=== PATIENT | male | born 1945 | race Caucasian/White ===

== ENCOUNTER 2020-05-27 17:53 | Inpatient (IN) | payer MEDICARE ==
[~2020-05-27] VITALS: Ht 172.7 cm; Wt 58.6 kg
[2020-05-27 18:18] VITALS: BP 131/92
[2020-05-27 18:38] LABS: BASO # 0.1 10*3/uL (0.0-0.1); EOS # 0.1 10*3/uL (0.0-0.4); EOS % 1.5 % (1.0-4.0); HEMATOCRIT 40.4 % (42.0-52.0); LYMPH # 1.3 10*3/uL (1.3-4.4); LYMPH % 18.3 % (27.0-41.0); MEAN CELL VOLUME 101.8 fl (80.0-94.0); MEAN CORPUSCULAR HGB 32.5 pg (27.0-31.0); MEAN CORPUSCULAR HGB CONC 31.9 g/dl (33.0-37.0); MEAN PLATELET VOLUME 9.3 fl (9.6-12.3); MONO # 0.7 10*3/uL (0.1-1.0); MONO % 10.3 % (3.0-9.0); NEUT # 4.9 10*3/uL (2.3-7.9); NEUT % 68.3 % (47.0-73.0); PLATELET COUNT AUTOMATED 318 10*3/uL (130-400); RED BLOOD COUNT 3.97 10*6/uL (4.50-5.90); RED CELL DISTRI WIDTH 15.2 % (0-14.5); WHITE BLOOD COUNT 7.1 10*3/uL (4.8-10.8)
[2020-05-27 18:53] LABS: ACT PARTIAL THROMBO TIME 27.9 SECONDS (20.0-32.1)
[2020-05-27 18:56] LABS: ALBUMIN 3.7 gm/dl (3.1-4.5); ALKALINE PHOSPHATASE 80 U/L (45-117); BUN 6 mg/dl (7-24); CHLORIDE 104 mmol/L (98-107); POTASSIUM 3.9 mmol/L (3.5-5.1); SGOT/AST 24 IU/L (3-35); SGPT/ALT 21 U/L (12-78); SODIUM 138 mmol/L (136-145); TOTAL PROTEIN 7.7 gm/dL (6.4-8.2); TROPONIN I < 0.015 ng/ml (<0.045)
--- NOTE | 2020-05-27 19:14 | NUR ---
PT IS RESTING IN BED. A+OX3. REQUESTED A WARM BLANKET.
[2020-05-27 20:36] VITALS: BP 130/89
--- NOTE | 2020-05-27 20:38 | NUR ---
PHOTO TAKEN OF LEFT 4TH TOE. PT DENIES ANY OTHER WOUNDS. FLAKY DRY SKIN NOTED TO LLE
[2020-05-27 21:10] VITALS: BP 138/89
--- NOTE | 2020-05-27 21:10 | NUR ---
Time: 2109 A 74 year old MALE admitted to 5E under services of RONALD BARCLAY DO. Pt. arrived via stretcher from ER. Chief complaint: INFECTION L FOOT/L 4TH TOE. RICK CRAWFORD
[2020-05-27] MEDS ORDERED: TUMS ULTRA STR470 MG PO (21:27)
[2020-05-27] MEDS ORDERED: ADVIL200 M1 PO (21:29)
--- NOTE | 2020-05-27 21:29 | NUR ---
MED REC UP TO DATE PER PT RECALL.
[2020-05-27] MEDS ORDERED: VANCOMYCIN HCL250 MG PO (21:30)
[2020-05-27] MEDS ORDERED: [UNRECOGNIZED DRUG - OTHER] INH (21:32)
--- NOTE | 2020-05-27 21:34 | NUR ---
NOTIFIED OF LACTIC ACID 2.2. NO NEW ORDERS REC'D.
[2020-05-27] MEDS ORDERED: PROVENTIL HFA6.7 GM INH (21:35)
--- NOTE | 2020-05-27 21:46 | NUR ---
(PODIATRY RESIDENT) NOTIFIED OF CONSULT. DISCUSSED XRAY RESULTS, PHYSICAL APPEARANCE OF FOOT/ANKLE, LABS, AND OTHER PERTINENT PT INFORMATION. NEW ORDERS RECEIVED FOR ESR, CRP, AND CT W/WO CONTRAST TO INCLUDE L FOOT, ANKLE, & LEG.
--- NOTE | 2020-05-27 22:14 | NUR ---
HARRY (PODIATRY RESIDENT) CALLED THIS RN REQUESTING PHOTOS OF XRAY OF L FOOT. RN UNABLE TO SEE IMAGE. SPOKE TO . WILL SEND IMAGES OF XRAY TO [facility].
--- NOTE | 2020-05-27 22:54 | NUR ---
PO NORCO GIVEN FOR C/O PAIN IN L FOOT RATED 10/10. WILL MONITOR EFFECTIVENESS.
--- NOTE | 2020-05-27 22:59 | NUR ---
SPOKE TO DR.BRITAIN ARCEO WHO IS THE RESIDENT NOW REMELTER FOR PODIATRY. DISCUSSED ORDERS RECEIVED FROM . PER , CT CAN BE DONE WITHOUT CONTRAST. NO NEED FOR WITH/WITHOUT CONTRAST. INSTRUCTED TO CALL WHEN REPORT COMES BACK. ALSO MADE AWARE OF QUESTIONABLE PEDAL PULSE IN L FOOT. DOPPLER USED AND FAINT PULSE HEARD AT TIMES, BUT INCONSISTENT. STILL STATES TO CALL HER WITH CT RESULTS AND WILL SEE IN AM UNLESS OTHERWISE NEEDED. 'S PHONE NUMBER [phone].
--- NOTE | 2020-05-27 23:04 | NUR ---
PT TAKEN OFF FLOOR FOR STAT CT LEG/FOOT WITHOUT CONTRAST.
--- NOTE | 2020-05-27 23:17 | NUR ---
PT RETURNED FROM CT
--- NOTE | 2020-05-27 23:23 | NUR ---
NOTIFIED OF MED REC UP TO DATE. AWARE OF PATIENT'S CLAIMS OF TAKING 3 500MG ADVIL Q3H FOR PAIN. PT STATES HE TOOK 21 PILLS TOTAL YESTERDAY.
--- NOTE | 2020-05-27 23:50 | NUR ---
ORAL GOMES HELPED PER PT.
[2020-05-28] VITALS: BP 108/67
--- NOTE | 2020-05-28 00:56 | NUR ---
STILL NO CT REPORT YET. WILL NOTIFY WHEN RESULTS ARE AVAILABLE.
--- NOTE | 2020-05-28 01:29 | NUR ---
NOTIFIED OF CT RESULTS. RN READ FULL IMPRESSION TO STATES SHE WAS ALREADY ON HER WAY IN AND WILL SEE THE PATIENT TONIGHT.
--- NOTE | 2020-05-28 02:15 | NUR ---
PT MEDICATED WITH PO TYLENOL PER PRN ORDER FOR C/O PAIN IN L FOOT RATED 8/10. WILL MONITOR. CALL LIGHT IN REACH.
--- NOTE | 2020-05-28 02:19 | NUR ---
ICE PACK PROVIDED PER REQUEST.
--- NOTE | 2020-05-28 03:07 | NUR ---
EARLIER TYLENOL HELPED SOME. PT STILL RATING L FOOT PAIN 12/11. PO NORCO GIVEN PER PRN ORDER. WILL MONITOR. CALL LIGHT IN REACH. BED ALARM INTACT.
--- NOTE | 2020-05-28 04:00 | NUR ---
EARLIER MEDICATIONS APPEAR EFFECTIVE. PT ASLEEP IN BED. RESPIRATIONS EASY. NO S/S OF DISTRESS NOTED. WILL MONITOR. CALL LIGHT IN REACH. BED ALARM INTACT.
--- NOTE | 2020-05-28 04:10 | NUR ---
HERE TO SEE PATIENT.
--- NOTE | 2020-05-28 04:40 | NUR ---
NOTIFIED OF PT'S C/O PAIN FOLLOWING DRESSING APPLICATION. DISCUSSED PAIN MEDICATION ALREADY GIVEN. ADDITIONAL PAIN MEDICATION WILL NEED TO BE ADDRESSED BY PRIMARY TEAM. PT REQUESTING ICE PACKS. AWARE PT HAS BEEN FREEZING HIS OWN WATER BOTTLES AND USING THEM ICE PACKS. SPOKE TO . AWARE OF TYLENOL GIVEN AROUND 2AM AND NORCO GIVEN AROUND 3AM. DISCUSSED C/O THROBBING PAIN FOLLOWING DRESSING CHANGE BY PODIATRY. NEW ORDER RECEIVED FOR 1MG MORPHINE X1 DOSE NOW.
--- NOTE | 2020-05-28 05:02 | NUR ---
MADE AWARE THAT VENOUS & ARTERIAL STUDIES MAY NOT BE DONE FOR A FEW DAYS DUE TO THE HOLIDAY. RN QUESTIONED IF WE SHOULD STILL PLAN FOR SURGERY ON 05/29 IF THESE ARE NOT DONE. PER , PLAN FOR SURGERY REGARDLESS.
--- NOTE | 2020-05-28 05:22 | NUR ---
PT STILL REFUSING TO TAKE OFF BLUE JEANS. PT REFUSED BATH 2 TIMES THROUGHOUT THE NIGHT. PT STATES EARLIER MORPHINE HELPING SOME. STATES HE JUST WANTS TO REST. WILL MONITOR. CALL LIGHT IN REACH. BED ALARM INTACT.
[2020-05-28 07:10] LABS: BASO # 0.1 10*3/uL (0.0-0.1); BASO % 1.1 % (0.0-1.0); EOS # 0.2 10*3/uL (0.0-0.4); EOS % 3.4 % (1.0-4.0); HEMATOCRIT 35.1 % (42.0-52.0); LYMPH # 1.2 10*3/uL (1.3-4.4); LYMPH % 23.7 % (27.0-41.0); MEAN CELL VOLUME 100.6 fl (80.0-94.0); MEAN CORPUSCULAR HGB 32.4 pg (27.0-31.0); MEAN CORPUSCULAR HGB CONC 32.2 g/dl (33.0-37.0); MEAN PLATELET VOLUME 9.4 fl (9.6-12.3); MONO # 0.8 10*3/uL (0.1-1.0); MONO % 14.9 % (3.0-9.0); NEUT % 56.3 % (47.0-73.0); PLATELET COUNT AUTOMATED 285 10*3/uL (130-400); RED BLOOD COUNT 3.49 10*6/uL (4.50-5.90); RED CELL DISTRI WIDTH 15.5 % (0-14.5); WHITE BLOOD COUNT 5.2 10*3/uL (4.8-10.8)
[2020-05-28 07:26] LABS: BUN 8 mg/dl (7-24); CHLORIDE 108 mmol/L (98-107); CHOLESTEROL 153 mg/dL (<200); POTASSIUM 4.1 mmol/L (3.5-5.1); SODIUM 140 mmol/L (136-145)
[2020-05-28 07:38] LABS: ALKALINE PHOSPHATASE 66 U/L (45-117); CREATININE 0.73 mg/dL (0.70-1.30); FREE T4 1.01 ng/dl (0.76-1.46); HDL CHOLESTEROL 62 mg/dl (40-60); LDL CHOLESTEROL 78 mg/dL (9-159); SGOT/AST 22 IU/L (3-35); SGPT/ALT 16 U/L (12-78); TOTAL PROTEIN 6.6 gm/dL (6.4-8.2); TRIGLYCERIDES 67 mg/dl (<150); VLDL CHOLESTEROL 13 mg/dL (6-40)
[2020-05-28 08:00] VITALS: BP 132/76
--- NOTE | 2020-05-28 08:31 | NUR ---
MEDICATED WITH PRN PO NORCO FOR LEFT FOOT PAIN.
[2020-05-28 08:32] LABS: VITAMIN D, 25-HYDROXY 16.7 ng/mL (30-100)
--- NOTE | 2020-05-28 09:30 | NUR ---
PRN PO NORCO SOMEWHAT EFFECTIVE, PER PATIENT.
--- NOTE | 2020-05-28 09:41 | NUR ---
MEDICATED WITH PO ATIVAN X 1 ORDERED FOR ANXIETY.
--- NOTE | 2020-05-28 10:30 | NUR ---
PO ATIVAN EFFECTIVE, PER PATIENT.
--- NOTE | 2020-05-28 11:27 | NUR ---
PER PODIATRY RESIDENT, WOUND C/S OF LEFT 4TH TOE SENT, SURGERY FOR TOMORROW CANCELLED D/T PATIENT MUST HAVE ARTERIAL STUDIES AND A VASCULAR SURGERY CONSULT TO CLEAR HIM PRIOR TO ANY SURGERY TO THE FOOT.
[2020-05-28 12:00] VITALS: BP 122/81
--- NOTE | 2020-05-28 13:53 | NUR ---
MEDICATED WITH PRN PO NORCO FOR LEFT FOOT PAIN.
--- NOTE | 2020-05-28 14:27 | NUR ---
PRN PO NORCO MINIMALLY EFFECTIVE, PER PATIENT.
[2020-05-28 16:00] VITALS: BP 136/86
--- NOTE | 2020-05-28 18:16 | NUR ---
MEDICATED WITH PRN PO NORCO FOR LEFT FOOT PAIN.
[2020-05-28 20:00] VITALS: BP 126/77
--- NOTE | 2020-05-28 21:22 | NUR ---
MEDICATED WITH PRN NOCRO FOR C/O LEFT FOOT PAIN RATING A 10/10. CALL LIGHT IS WITHIN REACH. WILL MONITOR EFFECT.
--- NOTE | 2020-05-28 22:22 | NUR ---
PRN NORCO EFFECTIVE. PATIENT SLEEPING. RESPERS EASY AND REGULAR. CALL LIGHT IS WITHIN REACH.
[2020-05-29] VITALS: BP 116/72
--- NOTE | 2020-05-29 02:30 | NUR ---
MEDICATED WITH PRN NORCO FOR C/O LEFT FOOT PAIN RATING A 8/10. CALL LIGHT IS WITHIN REACH, WILL MONITOR EFFECT.
--- NOTE | 2020-05-29 03:00 | NUR ---
PRN NORCO EFFECTIVE. PATIENT SLEEPING. RESPERS EASY AND REGLAR. CALL LIGHT IS WITHIN REACH.
--- NOTE | 2020-05-29 06:36 | NUR ---
PRN NORCO GIVEN FOR C/O LEFT FOOT PAIN. CALL LIGHT IS WITHIN REACH.
[2020-05-29 07:23] LABS: BASO # 0.1 10*3/uL (0.0-0.1); BASO % 0.8 % (0.0-1.0); EOS # 0.2 10*3/uL (0.0-0.4); EOS % 3.6 % (1.0-4.0); HEMATOCRIT 35.3 % (42.0-52.0); LYMPH # 1.1 10*3/uL (1.3-4.4); LYMPH % 16.9 % (27.0-41.0); MEAN CELL VOLUME 103.2 fl (80.0-94.0); MEAN CORPUSCULAR HGB 32.5 pg (27.0-31.0); MEAN CORPUSCULAR HGB CONC 31.4 g/dl (33.0-37.0); MONO # 0.9 10*3/uL (0.1-1.0); MONO % 13.3 % (3.0-9.0); NEUT # 4.2 10*3/uL (2.3-7.9); NEUT % 65.1 % (47.0-73.0); PLATELET COUNT AUTOMATED 266 10*3/uL (130-400); RED BLOOD COUNT 3.42 10*6/uL (4.50-5.90); RED CELL DISTRI WIDTH 15.8 % (0-14.5); WHITE BLOOD COUNT 6.4 10*3/uL (4.8-10.8)
[2020-05-29 07:26] LABS: BUN 10 mg/dl (7-24); CHLORIDE 109 mmol/L (98-107); CREATININE 0.82 mg/dL (0.70-1.30); POTASSIUM 4.6 mmol/L (3.5-5.1); SODIUM 140 mmol/L (136-145)
[2020-05-29 08:00] VITALS: BP 134/82
--- NOTE | 2020-05-29 10:06 | NUR ---
Division Operations Manager in to talk to patient in his room. Patient states that he Lives at Home Alone with the Assistance of Friends. His is a [employer] Mach[employer] Care Resident at [facility] for the last 6 years. There are 7 steps in the home. Physician: Pt. has no Primary Care Physician at this time Pharmacy: [facility] health services: Pt. reports that he is Current with [facility] 1 x wk and [facility] Twice a Week 2 hours each day. Patient's level of ADLs: Independent. Patient has working utilities: Yes all working DME: Pt. reports that he has a Walker and Wheelchair at Home Follow-up physician's appointment after d/c: Per Hospitalist Nurse Director. Pt. does not have a Primary Care Physician and Will Require set up with a Primary Care Dr. Does patient want to access PORTAL?: Declines Discharge plan discussed with Pt. as well as via telephone with his Idania. Pt. would like to return home at discharge. Refusing SNF. Is receptive to receiving Home Health and States that he is Current with [facility]. Case Management will Follow on Sunday. SHARI SINGH LPN
[2020-05-29 12:00] VITALS: BP 145/84
--- NOTE | 2020-05-29 14:20 | NUR ---
DR. MARI'S ANSWERING SERVICE NOTIFIED OF CONSULT.
[2020-05-29 16:00] VITALS: BP 154/82
--- NOTE | 2020-05-29 17:29 | NUR ---
NORCO GIVEN FOR C/O LT FOOT PAIN. RATES 7/10 ON PAIN SCALE. WILL MONITOR.
--- NOTE | 2020-05-29 18:30 | NUR ---
ELISEO EFFECTIVE PER PT.
[2020-05-29 20:00] VITALS: BP 157/89
--- NOTE | 2020-05-29 20:17 | NUR ---
PHARMACY NOTIFIED OF VANC TROUGH OF 5.8.
--- NOTE | 2020-05-29 21:56 | NUR ---
ASSUMED CARE OF PATIENT. PATIENT IS AAOX3 RESTING IN BED WITH EASY AND REGULAR RESPERS ON ROOM AIR. ASSESSMENT IS COMPLETE WITH NO S/S OF DISTRESS NOTED AT THIS TIME. PRN NORCO GIVEN FOR PATIENT C/O LEFT FOOT PAIN RATING A 6/10. BED IS LOW, LOCKED, AND CALL LIGHT IS WITHIN REACH. WILL CONTINUE TO MONITOR, SEE INTERVENTIONS.
[2020-05-30] VITALS: BP 136/82
[2020-05-30 07:33] LABS: BUN 6 mg/dl (7-24); CHLORIDE 105 mmol/L (98-107); CREATININE 0.61 mg/dL (0.70-1.30); POTASSIUM 3.8 mmol/L (3.5-5.1); SODIUM 138 mmol/L (136-145)
[2020-05-30 08:00] VITALS: BP 126/64
[2020-05-30 09:28] LABS: BASO # 0.1 10*3/uL (0.0-0.1); BASO % 0.7 % (0.0-1.0); EOS # 0.1 10*3/uL (0.0-0.4); EOS % 1.2 % (1.0-4.0); HEMATOCRIT 34.9 % (42.0-52.0); LYMPH # 1.1 10*3/uL (1.3-4.4); LYMPH % 12.8 % (27.0-41.0); MEAN CORPUSCULAR HGB 31.9 pg (27.0-31.0); MEAN CORPUSCULAR HGB CONC 32.1 g/dl (33.0-37.0); MEAN PLATELET VOLUME 10.6 fl (9.6-12.3); MONO % 12.2 % (3.0-9.0); NEUT # 6.2 10*3/uL (2.3-7.9); NEUT % 72.9 % (47.0-73.0); PLATELET COUNT AUTOMATED 296 10*3/uL (130-400); RED BLOOD COUNT 3.51 10*6/uL (4.50-5.90); RED CELL DISTRI WIDTH 15.6 % (0-14.5); WHITE BLOOD COUNT 8.5 10*3/uL (4.8-10.8)
[2020-05-30 09:30] LABS: MEAN CELL VOLUME 99.4 fl (80.0-94.0)
--- NOTE | 2020-05-30 10:56 | NUR ---
MEDICATED WITH WHIT MARTINEZCO.
[2020-05-30 12:00] VITALS: BP 134/69
--- NOTE | 2020-05-30 14:00 | NUR ---
PODIATRY RESIDENT HERE AND CHANGED DRESSING TO FOOT.
--- NOTE | 2020-05-30 15:00 | NUR ---
PATIENT TO TRANSFER TO [facility] PER DR. GOMES IN AM, FACE SHEET FAXED.
[2020-05-30 16:00] VITALS: BP 143/81
--- NOTE | 2020-05-30 17:26 | NUR ---
MEDICATED WITH PRN NORCO PER ORDER AND REQUEST.
--- NOTE | 2020-05-30 18:01 | NUR ---
NO ORDERS OF A TIME FROM [facility] AT THIS TIME.
[2020-05-30 20:00] VITALS: BP 134/86
--- NOTE | 2020-05-30 21:37 | NUR ---
MICHELLECO GIVEN PER ORDER FOR PAIN LEFT FOOT RATED "9" SEE MAR
--- NOTE | 2020-05-30 22:30 | NUR ---
NORCO EFFECTIVE FOR PAIN PER PT.
[2020-05-31] VITALS: BP 138/81
--- NOTE | 2020-05-31 01:21 | NUR ---
ELISEO GIVEN PER ORDER FOR PAIN LEFT FOOT RATED "9" PER PT. PAIN COMES AND GOES SHARP. SEE MAR.
--- NOTE | 2020-05-31 02:20 | NUR ---
ELISEO HELPING WITH PAIN PATIENT ALSO REPOSITIONED FOR COMFORT.
--- NOTE | 2020-05-31 03:56 | NUR ---
24 HR chart check completed.
--- NOTE | 2020-05-31 04:15 | NUR ---
PATIENT AWAKE AND WANTING SOMETHING FOR PAIN EXPLAINED TO STEVEN GOMES NOT DUE FOR ANOTHER HOUR AND 10 MINUTES AND UNABLE TO WAIT UNTIL THEN. PATIENT WAS AWARE OF NOTHING TO EAT BUT INFORMED THIS RN THAT HE ATE PART OF A BANANA A FEW MINUTES AGO. TOLD PATIENT HE IS TO NOT EAT OR DRINK ANOTHER THING THAT HE IS GOING TO BE HAVING A PROCEDURE DONE THAT REQUIRES HIM NOT TO EAT OR DRINK ANYTHING. PATIENT SAID "I CAN EVEN HAVE ICE CUBES." INFORMED PT. NOT EVEN ICE. NO TIME HAS BEEN NOTIFIED TO US OF WHEN THIS PROCEDURE IS TO HAPPEN ONLY THAT PATIENT IS TO GO SOMETIME TODAY FOR THE ANGIOGRAM.
--- NOTE | 2020-05-31 04:38 | NUR ---
TYLENOL GIVEN PER ORDER FOR PAIN WITH SIP OF WATER, TO SOON TO GIVE PATIENT NORCO FOR PAIN IN LEFT FOOT RATED "9". SEE MAR.
--- NOTE | 2020-05-31 05:27 | NUR ---
NORCO GIVEN PER ORDER FOR PAIN IN LEFT FOOT RATED "9". MED GIVEN WITH SIP OF WATER.
--- NOTE | 2020-05-31 06:20 | NUR ---
PATIENT RESTING. NORCO EFFECTIVE. PATIENT TRYING TO GET STAFF TO GIVE HIM SOMETHING TO DRINK. EXPLAINED TO PATIENT HE IS NOT ALLOWED.
[2020-05-31 08:00] VITALS: BP 145/84
--- NOTE | 2020-05-31 08:30 | NUR ---
Saw Pt. this a.m. Discharge Plan remained Unchanged. Pt. will return home at discharge. Has Requested [facility] at Discharge. Referral and Discharge Information faxed to [facility] Attn: barb [phone] along with Face to Face Encounter.
[2020-05-31 09:30] LABS: BASO % 0.6 % (0.0-1.0); EOS # 0.1 10*3/uL (0.0-0.4); EOS % 0.8 % (1.0-4.0); HEMATOCRIT 35.1 % (42.0-52.0); LYMPH # 1.2 10*3/uL (1.3-4.4); LYMPH % 17.8 % (27.0-41.0); MEAN CELL VOLUME 100.3 fl (80.0-94.0); MEAN CORPUSCULAR HGB 32.3 pg (27.0-31.0); MEAN CORPUSCULAR HGB CONC 32.2 g/dl (33.0-37.0); MEAN PLATELET VOLUME 9.4 fl (9.6-12.3); MONO # 0.8 10*3/uL (0.1-1.0); MONO % 12.9 % (3.0-9.0); NEUT # 4.4 10*3/uL (2.3-7.9); NEUT % 67.4 % (47.0-73.0); PLATELET COUNT AUTOMATED 279 10*3/uL (130-400); RED CELL DISTRI WIDTH 15.5 % (0-14.5); WHITE BLOOD COUNT 6.5 10*3/uL (4.8-10.8)
--- NOTE | 2020-05-31 09:35 | NUR ---
Patient to be transferred to [facility] for an angiogram today. Podiatry managing dressing to left foot. No strikethrough noted at time of assessment. Patient complains of pain. Monae RN caring for patient in room during assessment.
[2020-05-31] MEDS ORDERED: DOXYCYCLINE100 M3 PO (10:35)
--- NOTE | 2020-05-31 11:47 | NUR ---
Discharge instructions reviewed with patient/family. Patient receptive and verbalizes understanding. Follow-up care arranged. Written instructions given to patient/family. EDMOND JIMENES
== END 2020-05-31 11:47 | disposition other institution (70) | DRG 603 ==
LOC: ED 17:53 → EDHOLD 19:43 → 5E 19:43 → ICCU 22:54 → 5E 22:54
PROVIDERS: Emergency Medicine; Internal Medicine; Podiatrist; ADMIT Internal Medicine; ATTEND Internal Medicine
DX: L03.032 Cellulitis of left toe (principal); I96 Gangrene, not elsewhere classified; E87.2 Acidosis; I74.5 Embolism and thrombosis of iliac artery; I74.3 Embolism and thrombosis of arteries of the lower extremities; D53.9 Nutritional anemia, unspecified; B35.1 Tinea unguium; R73.9 Hyperglycemia, unspecified; K21.9 Gastro-esophageal reflux disease without esophagitis; J44.9 Chronic obstructive pulmonary disease, unspecified; F41.9 Anxiety disorder, unspecified; F17.210 Nicotine dependence, cigarettes, uncomplicated; L97.529 Non-pressure chronic ulcer of other part of left foot with unspecified severity; B96.20 Unspecified Escherichia coli [E. coli] as the cause of diseases classified elsewhere; B96.4 Proteus (mirabilis) (morganii) as the cause of diseases classified elsewhere; Z71.6 Tobacco abuse counseling; Z79.51 Long term (current) use of inhaled steroids; Z79.899 Other long term (current) drug therapy

== ENCOUNTER → 2020-10-25 | Outpatient (CLI) | payer MEDICARE ==
[~2020-10-25] MED LIST: ADVIL200 M1 PO; DOXYCYCLINE100 M3 PO; PROVENTIL HFA6.7 GM INH; TUMS ULTRA STR470 MG PO; VANCOMYCIN HCL250 MG PO; [UNRECOGNIZED DRUG - OTHER] INH
== END ==
LOC: WOUNDCARE 13:16
PROVIDERS: ATTEND Nurse Practitioner
DX: T87.89 Other complications of amputation stump (principal); L97.522 Non-pressure chronic ulcer of other part of left foot with fat layer exposed; I73.9 Peripheral vascular disease, unspecified; J44.9 Chronic obstructive pulmonary disease, unspecified; M86.172 Other acute osteomyelitis, left ankle and foot; F17.210 Nicotine dependence, cigarettes, uncomplicated; Y83.5 Amputation of limb(s) as the cause of abnormal reaction of the patient, or of later complication, without mention of misadventure at the time of the procedure; Y92.238 Other place in hospital as the place of occurrence of the external cause

== ENCOUNTER → 2020-11-02 | Outpatient (CLI) | payer MEDICARE | LOC: WOUNDCARE 00:53 | PROVIDERS: ATTEND Nurse Practitioner | DX: T81.89XD Other complications of procedures, not elsewhere classified, subsequent encounter (principal); L97.522 Non-pressure chronic ulcer of other part of left foot with fat layer exposed; I73.9 Peripheral vascular disease, unspecified; J44.9 Chronic obstructive pulmonary disease, unspecified; M86.172 Other acute osteomyelitis, left ankle and foot; F17.210 Nicotine dependence, cigarettes, uncomplicated; Y83.8 Other surgical procedures as the cause of abnormal reaction of the patient, or of later complication, without mention of misadventure at the time of the procedure ==

== ENCOUNTER → 2020-11-08 | Outpatient (CLI) | payer MEDICARE | LOC: WOUNDCARE 01:53 | PROVIDERS: ATTEND Nurse Practitioner | DX: T81.89XD Other complications of procedures, not elsewhere classified, subsequent encounter (principal); L97.522 Non-pressure chronic ulcer of other part of left foot with fat layer exposed; I73.9 Peripheral vascular disease, unspecified; J44.9 Chronic obstructive pulmonary disease, unspecified; F17.210 Nicotine dependence, cigarettes, uncomplicated; Y83.8 Other surgical procedures as the cause of abnormal reaction of the patient, or of later complication, without mention of misadventure at the time of the procedure ==

== ENCOUNTER → 2020-11-15 | Outpatient (CLI) | payer MEDICARE | LOC: WOUNDCARE 05:04 | PROVIDERS: ATTEND Nurse Practitioner | DX: T81.89XD Other complications of procedures, not elsewhere classified, subsequent encounter (principal); L97.522 Non-pressure chronic ulcer of other part of left foot with fat layer exposed; I73.9 Peripheral vascular disease, unspecified; J44.9 Chronic obstructive pulmonary disease, unspecified; F17.210 Nicotine dependence, cigarettes, uncomplicated; Y83.8 Other surgical procedures as the cause of abnormal reaction of the patient, or of later complication, without mention of misadventure at the time of the procedure ==

== ENCOUNTER → 2020-11-22 | Outpatient (CLI) | payer MEDICARE | LOC: WOUNDCARE 01:12 | PROVIDERS: ATTEND Nurse Practitioner | DX: T81.89XD Other complications of procedures, not elsewhere classified, subsequent encounter (principal); L97.522 Non-pressure chronic ulcer of other part of left foot with fat layer exposed; I73.9 Peripheral vascular disease, unspecified; J44.9 Chronic obstructive pulmonary disease, unspecified; F17.210 Nicotine dependence, cigarettes, uncomplicated; Z71.6 Tobacco abuse counseling; Y83.8 Other surgical procedures as the cause of abnormal reaction of the patient, or of later complication, without mention of misadventure at the time of the procedure ==

== ENCOUNTER → 2020-11-29 | Outpatient (CLI) | payer MEDICARE | LOC: WOUNDCARE 05:44 | PROVIDERS: ATTEND Nurse Practitioner | DX: T81.89XD Other complications of procedures, not elsewhere classified, subsequent encounter (principal); L97.522 Non-pressure chronic ulcer of other part of left foot with fat layer exposed; I73.9 Peripheral vascular disease, unspecified; J44.9 Chronic obstructive pulmonary disease, unspecified; F17.210 Nicotine dependence, cigarettes, uncomplicated; Z71.6 Tobacco abuse counseling; Y83.8 Other surgical procedures as the cause of abnormal reaction of the patient, or of later complication, without mention of misadventure at the time of the procedure ==

== ENCOUNTER → 2020-12-10 | Outpatient (CLI) | payer MEDICARE | LOC: WOUNDCARE 01:07 | PROVIDERS: ATTEND Nurse Practitioner | DX: T81.89XD Other complications of procedures, not elsewhere classified, subsequent encounter (principal); L97.522 Non-pressure chronic ulcer of other part of left foot with fat layer exposed; I73.9 Peripheral vascular disease, unspecified; J44.9 Chronic obstructive pulmonary disease, unspecified; F17.210 Nicotine dependence, cigarettes, uncomplicated; Z71.6 Tobacco abuse counseling; Y83.8 Other surgical procedures as the cause of abnormal reaction of the patient, or of later complication, without mention of misadventure at the time of the procedure ==